=== PATIENT | female | born 1995 ===

== ENCOUNTER 2017-08-11 16:59 | Emergency (ER) | payer OTHER ==
[2017-08-11 17:14] VITALS: BP 104/70; PULSE 83; RESP 18; TEMP 98.2; O2SAT 100
--- NOTE | 2017-08-11 18:21 | C.PDOC ---
History Of Present Illness Patient presents to ED c/o productive cough with brown/green sputum and wheezing x 3 days. Patient was seen at [facility] yesterday, given albuterol inhaler and albuterol treatments. She denies fever, chest pain, abdominal pain, sore throat, ear pain. Admits to runny nose, (+) PMHX of asthma and smoker of [place]. Time Seen by Provider: 08/11/17 17:31 Chief Complaint (Nursing): Cough, Cold, Congestion History Per: Patient History/Exam Limitations: no limitations Onset/Duration Of Symptoms: Days (3) Current Symptoms Are (Timing): Still Present Associated Symptoms: Cough, Sputum, Nasal Congestion. denies: Fever, Chills, Sore Throat Severity: Mild Past Medical History Reviewed: Historical Data, Nursing Documentation, Vital Signs Vital Signs: Last Vital Signs Temp 98.2 F 08/11/17 17:09 Pulse 83 08/11/17 17:09 Resp 18 08/11/17 17:09 BP 104/70 08/11/17 17:09 Pulse Ox 100 08/11/17 18:22 - Medical History PMH: Asthma Family History: States: No Known Family Hx - Social History Hx Alcohol Use: No Hx Substance Use: No - Immunization History Hx Tetanus Toxoid Vaccination: No Hx Influenza Vaccination: Yes Hx Pneumococcal Vaccination: No Review Of Systems Except As Marked, All Systems Reviewed And Found Negative. Constitutional: Negative for: Fever, Chills Cardiovascular: Negative for: Chest Pain, Palpitations Respiratory: Positive for: Cough, Wheezing. Negative for: Shortness of Breath, SOB with Excertion Gastrointestinal: Negative for: Nausea, Vomiting, Abdominal Pain, Diarrhea Skin: Negative for: Rash Physical Exam - Physical Exam Appears: Well, Non-toxic, No Acute Distress, Other (speaking in full sentences) Skin: Normal Color, Warm, Dry, No Rash Nose: Normal Oral Mucosa: Moist Throat: Normal, No Erythema, No Exudate Cardiovascular: Rhythm Regular Respiratory: Normal Breath Sounds, No Rales, No Rhonchi, No Wheezing, Other ( occasional coughing) Neurological/Psych: Oriented x3 ED Course And Treatment O2 Sat by Pulse Oximetry: 100 (RA) Pulse Ox Interpretation: Normal Progress Note: CXR ordered and reviewed. Patient given PO Tessalon. Disposition Counseled Patient/Family Regarding: Studies Performed, Diagnosis, Need For Followup, Rx Given - Disposition Referrals: [facility] [Outside] Disposition: HOME/ ROUTINE Disposition Time: 18:30 Condition: STABLE Additional Instructions: SEGUIMIENTO CON WILSON MDICO O CLNICA EN 1-2 SOW CONTINE USANDO INHALADOR DE ALBUTEROL SEGN SEA NECESARIO USE MEDICAMENTOS PARA LA TOS SEGN SEA NECESARIO BEBER MUCHO LQUIDO REGRESE AL CHEYANNE DE EMERGENCIA SI LOS SNT[place] EMPE[place]AN Prescriptions: Benzonatate [Tessalon Perles] 100 mg PO BID PRN #20 sgl PRN Reason: Cough Instructions: Upper Respiratory Infection (ED), Viral Syndrome (ED) Forms: [facility] (Samoan) Print Language: TURKMEN - POA Present On Arrival: None - Clinical Impression Clinical Impression: Viral upper respiratory infection
--- NOTE | 2017-08-11 18:38 | RAD ---
HISTORY: cough, fever COMPARISON: No prior. TECHNIQUE: Chest PA and lateral FINDINGS: LUNGS: No active pulmonary disease. PLEURA: No significant pleural effusion identified. No pneumothorax apparent. CARDIOVASCULAR: Normal. OSSEOUS STRUCTURES: No significant abnormalities. VISUALIZED UPPER ABDOMEN: Normal. OTHER FINDINGS: None. IMPRESSION: No active disease.
== END 2017-08-11 18:30 | disposition home or self-care (01) ==
LOC: C.ER 16:59
DX: J06.9 Acute upper respiratory infection, unspecified (principal)